=== PATIENT | female | born 1960 | race Caucasian/White ===

== ENCOUNTER 2016-07-01 20:55 | Inpatient (IN) | payer BC, OTHER ==
[~2016-07-01] VITALS: Ht 157.5 cm; Wt 82.6 kg
[2016-07-02 00:40] VITALS: BP 126/82
--- NOTE | 2016-07-02 00:40 | NUR ---
ADMISSION NOTE VS: T 97.9; BP 126/81; RR 18; RA 02 SAT 99%; HR 82; PAIN LEVEL: 0 BY 0-10 PAIN SCALE. Height: 5'2; Weight: 182 lb Patient is a 56 y/o female admitted to [facility] on 07/02/2016 at 00:40 under the care Elieser Azevedo MD for Benzo, Alcohol, Opioid dependence. NKA, NKDA, NKFA, Full Code. Fall and Seizures Precautions. Patient denies History of Seizures. Patient denies Suicidal and homicidal ideations. Patient denies past hospitalizations in the last 30 days. Patient reports last hospitalization in the 2015 for Carpal Tunnel Surgery. Urine specimen was collected for drug and screen. Patient reports LMP on 06/09/2016. Patient reports PMH: Anxiety, Depression, Right and Left Hips Rotation Surgeries; Right and Left Hands Carpal Tunnel Surgeries; Gastric Bypass Surgery; Gallbladder Removal Surgery, Heavy Tobacco Smoker, Substance Abuse. Patient denies Family History of Substance abuse. Patient reports that she has PCP. She got Flu vaccination in January,. Patient requested PNA vaccination. Patient reports Substance abuse History: 1. Alcohol/Vodka PO: 1pint daily since 2010. Last dosage' s 1 pint of Vodka on 07/01/2016 at 1800. 2 . Xanax PO since April,, 2 mg daily. Last dosage' s of 2 mg's on 07/01/2016 at 22:00. 3. Valium PO during last month 5 mg daily. Last dosage' s of 5 mg's on 07/01/2016 at 22:00. 4. Oxycodone PO: 2 years 3-5 mg daily. Last dosage' s of 5 mg's on 07/01/2016 at 22:00. 5. Tobacco since 1999: 10 cigarettes daily. Patient brought home medications: reconciliation done. Upon initial assessment patient is alert and oriented x4. COWS 7; CIWA 8. Patient c/o mild anxiety, flashes, nervousness, sweating, tremors of the hands. Patient denies N/V, and diarrhea. VS WNL: Patient has no S/S of distress now. Breathing is unlabored and even. Lungs Sounds are clear thoroughly bilaterally. Bowel Sounds are active in all four quadrants. Stomach is soft, non-tender. Skin is intact, warm and moist in tough. Encourage increased fluids intake. Educations was provided for Safety, Infections Control, Medications: Hand Out printed and given to patient . Patient was oriented to unit and on her room. Doctor Elieser Lira MD aware for patient condition. Waiting for orders. All needs met. Safety measures on the place by hospital policy: Call light within reach, Bed in the lowest position and locked; Padded bed rails up x2. Will continue to monitor.
[2016-07-02] MEDS ORDERED: ACETAMINOPHEN 325 MG TABLET PO PRN (01:15)
[2016-07-02] MEDS ORDERED: ONDANSETRON ODT 4 MG TAB.RAPDIS SL PRN (01:15)
[2016-07-02] MEDS ORDERED: THIAMINE HCL 200 MG/2 ML VIAL IM ONE (01:15)
[2016-07-02] MEDS ORDERED: DICYCLOMINE HCL 20 MG TABLET PO PRN (01:15)
[2016-07-02] MEDS ORDERED: LORAZEPAM 1 MG TABLET PO PRN ×2 (01:15)
[2016-07-02] MEDS ORDERED: HYDROXYZINE PAMOATE 25 MG CAPSULE PO PRN (01:15)
[2016-07-02] MEDS ORDERED: LORAZEPAM 2 MG/1 ML VIAL IM PRN (01:15)
[2016-07-02] MEDS ORDERED: MAG HYDROX/AL HYDROX/SIMETH 30 ML LIQUID UDC PO PRN (01:15)
[2016-07-02] MEDS ORDERED: MAGNESIUM HYDROXIDE 30 ML LIQUID UDC PO PRN (01:15)
[2016-07-02] MEDS ORDERED: CLONIDINE HCL 0.1 MG TABLET PO PRN (01:15)
[2016-07-02] MEDS ORDERED: LOPERAMIDE HCL 2 MG CAPSULE PO PRN ×2 (01:15)
[2016-07-02] MEDS ORDERED: BUPRENORPHINE HCL 2 MG TAB.SUBL SL PRN ×2 (01:30→15:00)
[2016-07-02] MEDS ORDERED: METHOCARBAMOL 750 MG TABLET PO PRN (01:30)
[2016-07-02 01:39] LABS: *AMPHETAMINE, URINE NEGATIVE (NEGATIVE); *BARBITURATE, URINE NEGATIVE (NEGATIVE); *CANNABINOID, URINE NEGATIVE (NEGATIVE); *COCCAINE, URINE NEGATIVE (NEGATIVE); *OPIATE, URINE POSITIVE (NEGATIVE); *PHENCYCLIDINE SCREEN,URINE NEGATIVE (NEGATIVE)
[2016-07-02 01:40] LABS: *URINE HCG, QUAL NEGATIVE (NEGATIVE)
[2016-07-02 01:56] LABS: BASOPHILS % (AUTO) 0.8 % (0.0-2.0); EOSINOPHILS # (AUTO) 0.1 K/uL (0.0-0.7); EOSINOPHILS % (AUTO) 1.3 % (0.0-7.0); HEMATOCRIT 37.8 % (37.0-47.0); HEMOGLOBIN 13.1 g/dL (12.0-16.0); LYMPHOCYTES # (AUTO) 1.4 K/uL (0.8-4.8); LYMPHOCYTES % (AUTO) 29.6 % (20.5-51.5); MEAN CORPUSCULAR HEMOGLOBIN 32.6 uug (27.0-31.0); MEAN CORPUSCULAR HGB CONC 35 g/dL (32.0-37.0); MEAN CORPUSCULAR VOLUME 94.5 fL (81.0-99.0); MONOCYTES # (AUTO) 0.4 K/uL (0.1-1.30); MONOCYTES % (AUTO) 8.6 % (0.0-11.0); NEUTROPHILS # (AUTO) 2.8 K/uL (1.8-8.9); NEUTROPHILS % (AUTO) 59.7 % (38.5-71.5); PLATELET COUNT (AUTO) 181 K/uL (150-450); RED CELL DISTRIBUTION WIDTH 12.3 % (11.5-14.5); WHITE BLOOD COUNT (AUTO) 4.7 K/uL (4.0-11.2)
[2016-07-02] MEDS ORDERED: ESCI10TA55 PO (01:57)
[2016-07-02] MEDS ORDERED: OMEP40CA37 PO (01:57)
[2016-07-02 02:02] LABS: ALBUMIN 4.1 g/dL (3.4-5.0); BILIRUBIN,TOTAL 0.4 mg/dL (0.2-1.0); CALCIUM 8.7 mg/dL (8.5-10.1); POTASSIUM 4.2 mmol/L (3.5-5.1); TOTAL PROTEIN, SERUM 7.8 g/dL (6.4-8.2)
[2016-07-02 02:13] LABS: THYROID STIMULATING HORMONE 2.573 mIU/mL (0.358-3.740)
[2016-07-02 02:21] LABS: HIV-1 p24 ANTIGEN NON REACTIVE (NONREACTIVE); HIV-1/2 ANTIBODY NON REACTIVE (NONREACTIVE)
[2016-07-02 04:00] VITALS: BP 124/76
--- NOTE | 2016-07-02 06:58 | NUR ---
END OF SHIFT Patient is a 56 y/o female admitted to [facility] on 07/02/2016 at 00:40 under the care Elieser Azevedo MD for Benzo, Alcohol, Opioid dependence. NKA, NKDA, NKFA, Full Code. Fall and Seizures Precautions. Patient denies History of Seizures. Patient denies Suicidal and homicidal ideations. Patient denies past hospitalizations in the last 30 days. Patient reports last hospitalization in the 2015 for Carpal Tunnel Surgery. Urine specimen was collected for drug and screen. Patient reports LMP on 06/09/2016. Patient reports PMH: Anxiety, Depression, Right and Left Hips Rotation Surgeries; Right and Left Hands Carpal Tunnel Surgeries; Gastric Bypass Surgery; Gallbladder Removal Surgery, Heavy Tobacco Smoker, Substance Abuse. Patient denies Family History of Substance abuse. Patient reports that she has PCP. She got Flu vaccination in January,. Patient requested PNA vaccination. Patient reports Substance abuse History: 1. Alcohol/Vodka PO: 1pint daily since 2010. Last dosage' s 1 pint of Vodka on 07/01/2016 at 1800. 2 . Xanax PO since April,, 2 mg daily. Last dosage' s of 2 mg's on 07/01/2016 at 22:00. 3. Valium PO during last month 5 mg daily. Last dosage' s of 5 mg's on 07/01/2016 at 22:00. 4. Oxycodone PO: 2 years 3-5 mg daily. Last dosage' s of 5 mg's on 07/01/2016 at 22:00. 5. Tobacco since 1999: 10 cigarettes daily. Patient brought home medications: reconciliation done. Upon last assessment patient is alert and oriented x4. COWS decreased from 8 to 6; CIWA decreased from 7 to 5 . Patient denies flashes, nervousness, sweating, and bones and muscles cramps. Patient has tremors of the hands. Patient denies N/V, and diarrhea. VS WNL: Patient has no S/S of distress now. Breathing is unlabored and even. Lungs Sounds are clear thoroughly bilaterally. Bowel Sounds are active in all four quadrants. Stomach is soft, non-tender. Patient reports last BM on 07/01/2016 in the morning. Skin remains intact, warm and dry in tough. Encouraged increased fluids intake. Doctor Elieser Lira MD aware for patient condition. Patient slept 3 hours. Intake: 1570 ml. Voided x3. All needs met. Safety measures on the place by hospital policy: Call light within reach, Bed in the lowest position and locked; Padded Bedrails up x2. Patient was endorsed to day shift nurse in stable condition. SBAR report given.
--- NOTE | 2016-07-02 07:41 | NUR ---
Start of shift note; Received report from night nurse. Patient is a 56 year old female admitted on 07/01/16. Patient is admitted for ETOH and Opioid dependence. Patient reported drinking ETOH (vodka) 1 pint for 6 years last consumed at 1800. Patient also reported using Xanax 2mg daily x2 in one month last used 07/01/16, Valium 5mg /daily x2 in one month last used 07/01/16 and Oxycodone 3-5 mg daily for 2 years last used 07/01/16 . NKA, full code status on fall seizure precautions. Patient reported past medical history of hip surgery in 2008, hand surgery in 2015, gastric bypass in 2008, anxiety disorder and depression disorder. Patient to be evaluated today for taper orders. Patient's last COWS score is 6 and last CIWA score is 5. Patient slept for 4 hours. All safety measures secured. Will closely monitor patient.
[2016-07-02 08:00] VITALS: BP 110/66
[2016-07-02] MEDS ORDERED: TUBERCULIN,PURIF.PROT.DERIV. 5 TU/0.1 ML TEST ID ONE (09:00)
[2016-07-02] MEDS: THIAMINE HCL 100 MG TABLET PO SCH (09:21)
[2016-07-02] MEDS: MULTIVITAMINS,THERAPEUTIC TABLET PO SCH (09:21)
[2016-07-02] MEDS: FOLIC ACID 1 MG TABLET PO SCH (09:21)
--- NOTE | 2016-07-02 09:55 | NUR ---
MD communication Notified Dr Lira of VTE score >5, stated he will place orders.
[2016-07-02] MEDS: ESCITALOPRAM OXALATE 10 MG TABLET PO SCH (10:36)
[2016-07-02 12:00] VITALS: BP 107/65
--- NOTE | 2016-07-02 13:00 | NUR ---
MD communication; MD ordered Lovenox for chemical VTE prophylaxis and VTE pump at bedside for VTE score of 5. Educated patient on how to use VTE pumps and the importance of compliance to treatment plan to prevent complications. Will continue to monitor patient.
[2016-07-02] MEDS: LORAZEPAM 1 MG TABLET PO SCH ×3 (13:25→21:02)
[2016-07-02 16:00] VITALS: BP 117/72
--- NOTE | 2016-07-02 17:00 | NUR ---
Medication held; Due Ativan held due to patient appears too sedated, vital signs remained within normal limits. Safety measures secured. MD notified. Will continue to monitor patient.
--- NOTE | 2016-07-02 18:15 | NUR ---
End of shift note; Patient is AOX4. Patient is a 56 year old female admitted on 07/01/16. Patient is admitted for ETOH and Opioid dependence. Patient reported drinking ETOH (vodka) 1 pint for 6 years last consumed at 1800. Patient also reported using Xanax 2mg daily x2 in one month last used 07/01/16, Valium 5mg /daily x2 in one month last used 07/01/16 and Oxycodone 3-5 mg daily for 2 years last used 07/01/16 . NKA, full code status on fall seizure precautions. Patient reported past medical history of hip surgery in 2008, hand surgery in 2015, gastric bypass in 2008, anxiety disorder and depression disorder. Patient was placed on modified Ativan taper today. Patient's last COWS score is 4 and last CIWA score is 3. All safety measures secured. Met all needs.
--- NOTE | 2016-07-02 18:45 | NUR ---
START OF SHIFT Patient endorsed by outgoing shift nurse. SBAR report received. Patient was admitted to [facility] on 07/02/2016at for Benzo/Alcohol/Opioid dependence, placed on 5 day Ativan taper. NKA, Regular Diet; Full Code, Fall and Seizures Precautions. Patient denies History of Seizure. Past Medical History: Anxiety Disorder; Depression Disorder; Substance Abuse ; Left and Right Hips Rotation Surgery; Right and Left Carpal Tunnel Surgery; Gallbladders Removal; Gastric Bypass Surgery. Patient also reports that she is mother of four children and grand mother of four grandchildren. Patient reports Substance abuse history: Alcohol/Vodka 500 ml(1 pint) since 2010 daily, Xanax 2 mg PO daily since May,, Valium of 6 mg daily PO during last month, and Oxycodone PO 3-5 mg daily since 2014. Upon assessment, Patient has mild anxiety, tremors that felt. Patient denies any pain now: she reports that pain level is 0 by o-10 pain scale. Patient denies Hallucinations. Patient denies SI/HI. VS WNL: T: 98'4; RR:16; HR: 75; RA O2 SAT: 95%. Breathing is unlabored and even bilaterally; Lungs are clear thoroughly. Patient denies SOB/chest pain. BS is active in all 4 quadrants. Abdomen is soft and non-tender. Patient reported that last BM was 07/01/2016 in the morning. Patient has no s/s of distress now. All needs met Safety measures in the place by hospital policy: Call light within reach; Bed is locked and in the lowest position; padded side rails up x2. Will continue to monitor.
[2016-07-02 20:36] VITALS: BP 111/67
[2016-07-02] MEDS: ENOXAPARIN SODIUM 40 MG/0.4 ML DISP.SYRIN SQ SCH (21:00)
[2016-07-03] VITALS: BP 107/67
[2016-07-03 04:00] VITALS: BP 105/68
--- NOTE | 2016-07-03 06:47 | NUR ---
END OF SHIFT Patient is a 56 years old female admitted to [facility] on 07/02/2016at for Benzo/Alcohol/Opioid withdrawal under medical supervision, placed on 5 day Ativan taper. NKA, Regular Diet; Full Code, Fall and Seizures Precautions. Patient denies History of Seizure. Past Medical History: Anxiety Disorder; Depression Disorder; Substance Abuse ; Left and Right Hips Rotation Surgery; Right and Left Carpal Tunnel Surgery; Cholecystectomy (Gallbladder removal); Gastric Bypass Surgery. Substance abuse history: Alcohol/Vodka PO 500 ml(1 pint) since 2010 daily, Xanax 2 mg PO daily since May,; Valium PO of 6 mg daily PO due one month, and Oxycodone PO 3-5 mg daily since 2014. VS WNL: T: 98'6; BP: 105/68; RR:14; HR: 60; RA O2 SAT: 96%. Pain level is 0 by o-10 pain scale. Lovenox (Enoxaparin Sodium) SQ once daily ordered for VTE Prevention. SCD Pumps on when patient in the bed. No PRN medications administrated last night. Patient slept 6 hours 15 minutes; Intake 1,550 ml; Voided x2; Stool x1. All needs met. Safety measures in the place by hospital policy: Call light within reach; Bed is locked and in the lowest position; padded side rails up x2. Patient endorsed to day shift nurse in stable condition. SBAR report given.
--- NOTE | 2016-07-03 07:45 | NUR ---
START OF SHIFT: RECEIVED PT A/O X 4 SITTING UP IN BED EATING BREAKFAST. SHE STATES SHE FEELS SOME MILD ANXIETY AND STATES THE ATIVAN IS EFFECTIVE IN REDUCING S/S OF W/D. ATIVAN TAPER IN PROGRESS. CIWA 1 COWS 1. PT STATES SHE WILL ATTEND GROUPS TODAY. ENCOURAGED INCREASED FLUIDS TO ASSIST IN FACILITATING DETOX PROCESS. WILL CONTINUE TO MONITOR AND MANAGE S/S OF W/D.
[2016-07-03 08:00] VITALS: BP 100/67
[2016-07-03] MEDS: ESCITALOPRAM OXALATE 10 MG TABLET PO SCH (08:45)
[2016-07-03] MEDS: THIAMINE HCL 100 MG TABLET PO SCH (08:45)
[2016-07-03] MEDS: FOLIC ACID 1 MG TABLET PO SCH (08:45)
[2016-07-03] MEDS: LORAZEPAM 1 MG TABLET PO SCH ×4 (08:45→21:27)
[2016-07-03] MEDS: MULTIVITAMINS,THERAPEUTIC TABLET PO SCH (08:45)
[2016-07-03] MEDS: IBUPROFEN 400 MG TABLET PO PRN (08:49)
[2016-07-03 12:00] VITALS: BP 100/75
[2016-07-03] MEDS ORDERED: PNEUMOCOCCAL 23-VAL P-SAC VAC 0.5 ML VIAL IM ONE (13:00)
[2016-07-03 15:09] LABS: HEPATITIS B CORE AB, IgM Negative (Negative); HEPATITIS B SURFACE AG Negative (Negative)
[2016-07-03 16:00] VITALS: BP 117/71
--- NOTE | 2016-07-03 19:12 | NUR ---
END OF SHIFT: PT ATTENDED GROUPS AND INTERACTED WITH PEERS TODAY. SHE CONTINUES ON ATIVAN TAPER. LAST CIWA1 COWS 2. SHE DID NOT REQUIRE PRNS AND STATES THE DETOX MEDS ARE EFFECTIVE. WILL PASS SHIFT REPORT TO ONCOMING NIGHT NURSE.
--- NOTE | 2016-07-03 19:15 | NUR ---
Start of shift note Received report from day shift nurse. Pt is a 56 yo female, A+Ox4, presenting to [facility] for ETOH/Benzo/Opiate dependence. Pt has NKA, is Full Code status, and on Regular Diet. Pt is on Fall and Seizure precautions. Pt has Hx of Right and Left Hip SX, Right and Left Carpal Tunnel SX, Gallbladder removal, Gastric Bypass, Anxiety and Depression. Pt is on 5 day Ativan taper, tolerated well. No s/s of distress noted at this time. Respirations even and unlabored. Will continue to monitor.
[2016-07-03 20:30] VITALS: BP 118/66
[2016-07-03] MEDS: ENOXAPARIN SODIUM 40 MG/0.4 ML DISP.SYRIN SQ SCH (21:28)
--- NOTE | 2016-07-04 00:05 | NUR ---
V/S, COWS, and CIWA Refused V/S, COWS, and CIWA Refused. no s/s of distress noted at this time. Respirations even and unlabored. Will continue to monitor.
--- NOTE | 2016-07-04 04:08 | NUR ---
V/S, COWS, and CIWA Refused V/S, COWS, and CIWA Refused. no s/s of distress noted at this time. Respirations even and unlabored. Will continue to monitor.
--- NOTE | 2016-07-04 07:02 | NUR ---
End of shift note Pt is a 56 yo female, A+Ox4, presenting to [facility] for ETOH/Benzo/Opiate dependence. Pt has NKA, is Full Code status, and on Regular Diet. Pt is on Fall and Seizure precautions. Pt has Hx of Right and Left Hip SX, Right and Left Carpal Tunnel SX, Gallbladder removal, Gastric Bypass, Anxiety and Depression. Pt is on 5 day Ativan taper, tolerated well. Pt slept for a total of 8 HRS. Last COWS: 1 and Last CIWA: 2 @1999. No s/s of distress noted at this time. Respirations even and unlabored. Will endorse to day shift nurse.
--- NOTE | 2016-07-04 07:47 | NUR ---
START OF SHIFT: RECEIVED PT A/O X 4 . SHE STATES SHE REPORTS MILD ANXIETY AND STATES THE ATIVAN IS EFFECTIVE IN REDUCING S/S OF W/D. ATIVAN TAPER IN PROGRESS. CIWA 1 . PT STATES SHE IS ATTENDING GROUPS . SHE STATES SHE SLEPT WELL LAST NIGHT. ENCOURAGED INCREASED FLUIDS TO ASSIST IN FACILITATING DETOX PROCESS. WILL CONTINUE TO MONITOR AND PROVIDE SAFE AND SUPPORTIVE ENVIRONMENT.
[2016-07-04 08:00] VITALS: BP 103/61
[2016-07-04 08:37] LABS: ALBUMIN 3.5 g/dL (3.4-5.0); BILIRUBIN,DIRECT 0.1 mg/dL (0.0-0.2); BILIRUBIN,TOTAL 0.3 mg/dL (0.2-1.0); CALCIUM 8.9 mg/dL (8.5-10.1); CREATININE 0.7 mg/dL (0.6-1.3); MAGNESIUM 2.1 mg/dL (1.8-2.4); POTASSIUM 4.4 mmol/L (3.5-5.1); TOTAL PROTEIN, SERUM 6.7 g/dL (6.4-8.2)
[2016-07-04] MEDS: LORAZEPAM 1 MG TABLET PO SCH ×3 (08:45→21:12)
[2016-07-04] MEDS: MULTIVITAMINS,THERAPEUTIC TABLET PO SCH (08:45)
[2016-07-04] MEDS: FOLIC ACID 1 MG TABLET PO SCH (08:45)
[2016-07-04] MEDS: ESCITALOPRAM OXALATE 10 MG TABLET PO SCH (08:45)
[2016-07-04] MEDS: THIAMINE HCL 100 MG TABLET PO SCH (08:45)
[2016-07-04 12:00] VITALS: BP 119/75
[2016-07-04 16:00] VITALS: BP 114/82
--- NOTE | 2016-07-04 19:15 | NUR ---
END OF SHIFT: PT CONTINUES ON ATIVAN TAPER.SHE REPORTED MILD ANXIETY AND STATES DETOX MEDS ARE EFFECTIVE SHE ATTENDED GROUPS. LAST CIWA 1 SHE DID NOT REQUIRE PRNS. WILL PASS SHIFT REPORT TO ONCOMING NIGHT NURSE.
--- NOTE | 2016-07-04 19:16 | NUR ---
Start of shift note Received report from day shift nurse. Pt is a 56 yo female, A+Ox4, presenting to [facility] for ETOH/Benzo/Opiate dependence. Pt has NKA, is Full Code status, and on Regular Diet. Pt is on Fall and Seizure precautions. Pt has HX of Right and Left Hip SX, Right and Left Carpal Tunnel SX, Gallbladder removal, Gastric Bypass, Anxiety and Depression. Pt is on 5 day Ativan taper, tolerated well. No s/s of distress noted at this time. Respirations even and unlabored. Will continue to monitor.
[2016-07-04 20:30] VITALS: BP 118/76
[2016-07-04] MEDS: diphenhydrAMINE 50 MG CAPSULE PO PRN (21:12)
[2016-07-04] MEDS: ENOXAPARIN SODIUM 40 MG/0.4 ML DISP.SYRIN SQ SCH (21:14)
--- NOTE | 2016-07-05 00:22 | NUR ---
V/S, COWS, and CIWA Refused V/S, COWS, and CIWA Refused. no s/s of distress noted at this time. Respirations even and unlabored. Will continue to monitor.
--- NOTE | 2016-07-05 04:18 | NUR ---
V/S, COWS, and CIWA Refused V/S, COWS, and CIWA Refused. no s/s of distress noted at this time. Respirations even and unlabored. Will continue to monitor.
--- NOTE | 2016-07-05 07:04 | NUR ---
End of shift note Pt is a 56 yo female, A+Ox4, presenting to [facility] for ETOH/Benzo/Opiate dependence. Pt has NKA, is Full Code status, and on Regular Diet. Pt is on Fall and Seizure precautions. Pt has Hx of Right and Left Hip SX, Right and Left Carpal Tunnel SX, Gallbladder removal, Gastric Bypass, Anxiety and Depression. Pt is on 5 day Ativan taper, tolerated well. Pt slept for a total of 8 HRS. Last COWS: 3 and Last CIWA: 2 @1999. No s/s of distress noted at this time. Respirations even and unlabored. Will endorse to day shift nurse.
[2016-07-05 08:00] VITALS: BP 93/61
--- NOTE | 2016-07-05 08:04 | NUR ---
Start of shift note SBAR report rcv'd. pt was admitted for ETOH dependence.Pt has a PMH of multipls surgeries, anxiety and depression. Pt is on the last day of her 5 day ativan taper and tolerating well without any ASE. Pt is currently resting in her bed, pt states that all of her needs are addressed. Will continue to monitor pt.
[2016-07-05] MEDS: MULTIVITAMINS,THERAPEUTIC TABLET PO SCH (08:50)
[2016-07-05] MEDS: FOLIC ACID 1 MG TABLET PO SCH (08:50)
[2016-07-05] MEDS: LORAZEPAM 1 MG TABLET PO SCH ×2 (08:51→22:43)
[2016-07-05] MEDS: ESCITALOPRAM OXALATE 10 MG TABLET PO SCH (08:51)
[2016-07-05] MEDS: THIAMINE HCL 100 MG TABLET PO SCH (08:51)
--- NOTE | 2016-07-05 12:00 | NUR ---
Refusal of vital signs Pt refused VS. COWS and CIWA deferred. Pt states that she is comfortable and free from s/s of withdrawal. Will continue to monitor pt.
[2016-07-05 16:00] VITALS: BP 90/54
--- NOTE | 2016-07-05 19:28 | NUR ---
End of shift note pt was admitted for ETOH dependence.Pt has a PMH of multiple surgeries, anxiety and depression. Pt is on the last day of her 5 day ativan taper and tolerating well without any ASE. Pt was very active and participated in all groups and activities during the shift today. Pt is very active in the program and doing very well. pt denies any pain or discomfort. All needs addressed at this time. SBAR report endorsed to oncoming shift.
--- NOTE | 2016-07-05 19:29 | NUR ---
Start of shift note Received report from day shift nurse. Pt is a 56 yo female, A+Ox4, presenting to [facility] for ETOH/Benzo/Opiate dependence. Pt has NKA, is Full Code status, and on Regular Diet. Pt is on Fall and Seizure precautions. Pt has HX of Right and Left Hip SX, Right and Left Carpal Tunnel SX, Gallbladder removal, Gastric Bypass, Anxiety and Depression. Pt is on 5 day Ativan taper, tolerated well. No s/s of distress noted at this time. Respirations even and unlabored. Will continue to monitor.
[2016-07-05 20:11] VITALS: BP 119/85
[2016-07-05] MEDS: ENOXAPARIN SODIUM 40 MG/0.4 ML DISP.SYRIN SQ SCH (22:44)
--- NOTE | 2016-07-06 00:07 | NUR ---
V/S, COWS, and CIWA Refused V/S, COWS, and CIWA Refused. no s/s of distress noted at this time. Respirations even and unlabored. Will continue to monitor.
--- NOTE | 2016-07-06 04:08 | NUR ---
V/S, COWS, and CIWA Refused V/S, COWS, and CIWA Refused. no s/s of distress noted at this time. Respirations even and unlabored. Will continue to monitor.
--- NOTE | 2016-07-06 06:53 | NUR ---
End of shift note Pt is a 56 yo female, A+Ox4, presenting to [facility] for ETOH/Benzo/Opiate dependence. Pt has NKA, is Full Code status, and on Regular Diet. Pt is on Fall and Seizure precautions. Pt has Hx of Right and Left Hip SX, Right and Left Carpal Tunnel SX, Gallbladder removal, Gastric Bypass, Anxiety and Depression. Pt is on 5 day Ativan taper, tolerated well. Pt slept for a total of 6 HRS. Last COWS: 1 and Last CIWA: 0 @1999. No s/s of distress noted at this time. Respirations even and unlabored. Will endorse to day shift nurse.
--- NOTE | 2016-07-06 07:24 | NUR ---
Start of shift note; Received report from night nurse. Patient is a 56 year old female admitted on 07/01/16. Patient is admitted for ETOH and Opioid dependence. Patient reported drinking ETOH (vodka) 1 pint for 6 years last consumed at 1800. Patient also reported using Xanax 2mg daily x2 in one month last used 07/01/16, Valium 5mg /daily x2 in one month last used 07/01/16 and Oxycodone 3-5 mg daily for 2 years last used 07/01/16 . NKA, full code status on fall seizure precautions. Patient reported past medical history of hip surgery in 2008, hand surgery in 2015, gastric bypass in 2008, anxiety disorder and depression disorder. Patient was placed on Ativan taper, no adverse reactions noted. Patient's last COWS score is 2 and last CIWA score is 1. Patient slept for 7 hours. All safety measures secured. Will closely monitor patient.
[2016-07-06 08:00] VITALS: BP 100/58
[2016-07-06] MEDS: MULTIVITAMINS,THERAPEUTIC TABLET PO SCH (08:37)
[2016-07-06] MEDS: ESCITALOPRAM OXALATE 10 MG TABLET PO SCH (08:37)
[2016-07-06] MEDS: FOLIC ACID 1 MG TABLET PO SCH (08:37)
[2016-07-06] MEDS: THIAMINE HCL 100 MG TABLET PO SCH (08:37)
[2016-07-06 12:00] VITALS: BP 119/68
--- NOTE | 2016-07-06 14:30 | NUR ---
Re-assessment; PRN medication is effective, patient denies pain at this time. Addendum: 07/06/16 at 1815 by SHAYAN GREGG LVN re-assessed patient at 1630
[2016-07-06] MEDS: IBUPROFEN 400 MG TABLET PO PRN (15:03)
--- NOTE | 2016-07-06 15:04 | NUR ---
PRN medication; Patient is complaining of back pain rated 7/10, Ibuprofen 400mg PO given. Will continue to monitor patient.
[2016-07-06 16:00] VITALS: BP 119/75
--- NOTE | 2016-07-06 18:15 | NUR ---
End of shift note; Patient is AOX4. Patient is 27 y/o male admitted on 07/02/16 for Opiate/benzo dependence. Abdomen soft and non-distended. No complains of N/V/D or constipation noted. (+) BS in all 4 quadrants. Ambulatory ad harpreet with steady gait. Patient was placed on a 5-day Subutex taper as ordered. No adverse reactions noted. Noted to be Allergic to Sulfa. FULL CODE status. Regular diet. On fall and seizure precautions. Educated patient on his current plan of care and his medication regimen. Encouraged oral fluid intake and encouraged group participation to learn new skills to prevent relapse. Patient's last COWS score is 4. All safety measures secured. Met all needs. Addendum: 07/06/16 at 1819 by SHAYAN GREGG LVN Disregard notes above, wrong patient charting.
--- NOTE | 2016-07-06 18:20 | NUR ---
End of shift note for 304; Patient is AOX4. Patient is a 56 year old female admitted on 07/01/16. Patient is admitted for ETOH and Opioid dependence. Patient reported drinking ETOH (vodka) 1 pint for 6 years last consumed at 1800. Patient also reported using Xanax 2mg daily x2 in one month last used 07/01/16, Valium 5mg /daily x2 in one month last used 07/01/16 and Oxycodone 3-5 mg daily for 2 years last used 07/01/16 . NKA, full code status on fall seizure precautions. Patient reported past medical history of hip surgery in 2008, hand surgery in 2015, gastric bypass in 2008, anxiety disorder and depression disorder. Patient completed Ativan taper, no adverse reactions noted. Patient's last COWS score is 1 and last CIWA score is 0. All safety measures secured. Met all needs.
[2016-07-06 20:00] VITALS: BP 126/78
--- NOTE | 2016-07-06 20:00 | NUR ---
1999 Patient received awake, alert and sitting up in her bed reading with television on. Upon seeing nurse enter her room # 304, Patient smiles and states, " Hi, how are you? Patient's color is pink and her skin is warm, dry and intact. Patient's lung sounds are clear bilaterally and active bowel sounds are noted X 4 abdominal Quads, per auscultation. Patient is oriented to person, place, day, date, time and her personal situation. Patient denies any pain or other discomforts at this time. Patient states that she is doing " fine" and she continues to be compliant with [facility] group attendance, her medication regimen and all that is asked of her, here on [facility] floor. Venous leg pump with bilateral leg sleeves in place on patient's bed, but not on patient's legs. Patient states that she is walking and does not need to wear leg pump sleeves at this time. Circulation and sensation to bilateral legs/feet are WNL. All toes are warm and pink with brisk blanching noted. Vital signs are: 98.8-76-16 126/78, O2 Sat 98%, CIWA 1, COWS 2 Fall/Seizure precautions in place. Patient moves all her extremities fully WNL. Patient offers no requests or c/o anything at this time. Bed is locked and in lowest position, bed rails are up X 2 and call light within patient's easy reach.
[2016-07-06] MEDS: ENOXAPARIN SODIUM 40 MG/0.4 ML DISP.SYRIN SQ SCH (21:28)
[2016-07-07] VITALS: BP 121/81
[2016-07-07] MEDS: diphenhydrAMINE 50 MG CAPSULE PO PRN ×2 (00:17→23:17)
--- NOTE | 2016-07-07 00:17 | NUR ---
PRN MEDICATION: Prn Benadryl 50 mg p.o. given per patient's request for sleep medication.
--- NOTE | 2016-07-07 01:17 | NUR ---
REASSESSMENT PRN MEDICATION: Patient is resting quietly with eyes closed and respirations quiet, even, unlabored at 16
--- NOTE | 2016-07-07 04:00 | NUR ---
Patient refused V/S, COWS, CIWA to be done at this time.
--- NOTE | 2016-07-07 06:30 | NUR ---
0630 Patient slept a total of 5 hours and she had 2 voids and no stools in bathroom. Total intake was 1,133 ml p.o. Prn medication given noted separately per floor protocol. V/SS afebrile, CIWA 1, COWS 2. Patient was admitted on 07/01/16 for; Alcohol, xanax, valium and oxycodone withdrawal and 5-Day Ativan medication taper has been completed. Patient is presently resting comfortably with eyes closed and respirations unlabored at 16.
--- NOTE | 2016-07-07 07:14 | NUR ---
Start of shift note; Received report from night nurse. Patient is a 56 year old female admitted on 07/01/16. Patient is admitted for ETOH and Opioid dependence. Patient reported drinking ETOH (vodka) 1 pint for 6 years last consumed at 1800. Patient also reported using Xanax 2mg daily x2 in one month last used 07/01/16, Valium 5mg /daily x2 in one month last used 07/01/16 and Oxycodone 3-5 mg daily for 2 years last used 07/01/16 . NKA, full code status on fall seizure precautions. Patient reported past medical history of hip surgery in 2008, hand surgery in 2015, gastric bypass in 2008, anxiety disorder and depression disorder. Patient was placed on Ativan taper, no adverse reactions noted. Patient's last COWS score is 2 and last CIWA score is 1. Patient slept for 5 hours. All safety measures secured. Will closely monitor patient.
[2016-07-07 08:00] VITALS: BP 95/58
[2016-07-07] MEDS: FOLIC ACID 1 MG TABLET PO SCH (08:44)
[2016-07-07] MEDS: MULTIVITAMINS,THERAPEUTIC TABLET PO SCH (08:44)
[2016-07-07] MEDS: THIAMINE HCL 100 MG TABLET PO SCH (08:44)
[2016-07-07] MEDS: ESCITALOPRAM OXALATE 10 MG TABLET PO SCH (08:44)
[2016-07-07 12:00] VITALS: BP 120/75
[2016-07-07] MEDS: IBUPROFEN 400 MG TABLET PO PRN (14:16)
[2016-07-07] MEDS ORDERED: PSEUDOEPHEDRINE HCL 30 MG TABLET PO PRN (15:15)
[2016-07-07] MEDS: LIDOCAINE 5% PATCH TD SCH (15:15)
[2016-07-07 16:00] VITALS: BP 105/62
[2016-07-07 16:11] LABS: *AMPHETAMINE, URINE NEGATIVE (NEGATIVE); *BARBITURATE, URINE NEGATIVE (NEGATIVE); *CANNABINOID, URINE NEGATIVE (NEGATIVE); *COCCAINE, URINE NEGATIVE (NEGATIVE); *OPIATE, URINE NEGATIVE (NEGATIVE); *PHENCYCLIDINE SCREEN,URINE NEGATIVE (NEGATIVE)
--- NOTE | 2016-07-07 18:19 | NUR ---
End of shift note; Patient is AOX4. Patient is a 56 year old female admitted on 07/01/16. Patient is admitted for ETOH and Opioid dependence. Patient reported drinking ETOH (vodka) 1 pint for 6 years last consumed at 1800. Patient also reported using Xanax 2mg daily x2 in one month last used 07/01/16, Valium 5mg /daily x2 in one month last used 07/01/16 and Oxycodone 3-5 mg daily for 2 years last used 07/01/16 . NKA, full code status on fall seizure precautions. Patient reported past medical history of hip surgery in 2008, hand surgery in 2015, gastric bypass in 2008, anxiety disorder and depression disorder. Patient completed Ativan taper, no adverse reactions noted. Patient's last COWS score is 1 and last CIWA score is 1. All safety measures secured. Met all needs.
[2016-07-07] MEDS ORDERED: LIDO30AD10 TD (18:59)
[2016-07-07] MEDS ORDERED: HYDR-3895 PO (18:59)
[2016-07-07] MEDS ORDERED: DIPH50CA37 PO (18:59)
[2016-07-07] MEDS ORDERED: Ibuprofen PO (18:59)
[2016-07-07] MEDS ORDERED: PSEU30TA PO (18:59)
[2016-07-07] MEDS ORDERED: Acetaminophen PO (18:59)
[2016-07-07 20:00] VITALS: BP 133/96
--- NOTE | 2016-07-07 20:00 | NUR ---
1999 Patient received awake, alert and just returning back to her room # 304 from [facility] in recreation room. Gait is steady. Upon seeing nurse enter her room, patient smiles and states, " Hi. Well I'm leaving tomorrow and even though I only had you two days, I'm going to miss you". Patient's color is pink and her skin is clean, warm, dry and intact. Patient is oriented to person, place, day, date, time and her personal situation. Vital signs are: 98.7-74-16 133/76 O2 Sat 99%, COWS 1, CIWA 1. Patient denies any pain or other discomforts and she states that she is looking forward to going to [facility] tomorrow. Patient ventilates her feelings about her drug detox treatment thus far, her discharge tomorrow and her possible future after she completes her stint in rehab, and she states that she is feeling 'very positive and optimistic about everything', and she continues to feel better and better each day. Patient further states that she continues to eat and take fluids ad harpreet with no gastric issues. Fall/Seizure precautions continue. Venous leg pump with bilateral leg sleeves in place on patient's bed, but not on patient's legs. Patient's overall mood/affect is euphoric presently. Bed is locked and in lowest position, bed rails are up X 2 and call light within patient's easy reach. Patient is in stable condition at this time.
[2016-07-07] MEDS: ENOXAPARIN SODIUM 40 MG/0.4 ML DISP.SYRIN SQ SCH (20:27)
--- NOTE | 2016-07-07 23:17 | NUR ---
PRN MEDICATION: Prn Benadryl 50 mg p.o. given per patient's request for sleep medication.
--- NOTE | 2016-07-08 | NUR ---
Patient refused V/S, COWS, CIWA to be done at the time.
--- NOTE | 2016-07-08 00:17 | NUR ---
REASSESSMENT PRN MEDICATION: Patient is resting comfortably with eyes closed and quiet, even, unlabored respirations noted at 14. Bed rails up X 2. Call light at patient's hand.
--- NOTE | 2016-07-08 04:00 | NUR ---
Patient refused V/S, COWS, CIWA to be done at this time.
--- NOTE | 2016-07-08 06:30 | NUR ---
0630 Patient had an uneventful night, sleeping a total of 6 hours. Total intake was 1,153 ml p.o. and patient had 3 voids and no stools. Prn medication given noted separately per floor protocol. V/SS afebrile, COWS 1, CIWA 1. Patient is presently resting comfortably with eyes closed and respirations even, unlabored at 16. Patient is in stable condition at this time.
[2016-07-08 07:06] LABS: *BENZODIAZEPINES Positive (.); *NORDIAZEPAM Negative (Cutoff=300); *OPIATES Negative ng/mL (Cutoff=300); *OXAZEPAM Positive (.)
--- NOTE | 2016-07-08 07:48 | NUR ---
BEGINNING OF SHIFT Patient endorsement report received from restaurant shift supervisor nurse, all pertinent information discussed. Patient is a 56 year old Female admitted on 07/01/2016 with admitting Dx: ETOH/Opiate/bzo/opiate dependence. Patient with past medical history of: right and left hips rotated surgery, right and left ahnd carpal tunner surgery, gallbladder removal, gastrci by pass surgery, anxiety and depression. Patient with substance use history of: vodka 1 pint daily for 6 years, Xanax Po 2 mg daily for one month, Valium 5 mg daily for one moneht, oxycodone 3-5mg daily for 2 years. Patient completed 5 day Ativan taper as ordered and is scheduled to be discharged today to [place]. As per restaurant shift supervisor patient slept for 6 hours, and received PRNs Benadryl as ordered, as per restaurant shift supervisor medication effective. Patients last ciwa score of: 1 and last cow score of: 1. Patient received in bed with eyes closed respirations are even and unlabored. Responsive to verbal stimuli, educated regarding plan of care for the day and medication regimen, safety measures in place, call light with in reach, will continue to monitor closely.
[2016-07-08 08:36] VITALS: BP 96/62
[2016-07-08] MEDS: FOLIC ACID 1 MG TABLET PO SCH (08:53)
[2016-07-08] MEDS: ESCITALOPRAM OXALATE 10 MG TABLET PO SCH (08:53)
[2016-07-08] MEDS: LIDOCAINE 5% PATCH TD SCH (08:53)
[2016-07-08] MEDS: MULTIVITAMINS,THERAPEUTIC TABLET PO SCH (08:53)
[2016-07-08] MEDS: THIAMINE HCL 100 MG TABLET PO SCH (08:53)
--- NOTE | 2016-07-08 09:45 | NUR ---
DISCHARGE Patient was discharged and off the unit at 0945, prior to discharge patient educated and provided with teaching regarding all discharge instructions, with good verbal understanding. patient noted self motivated towards sobriety patient discharged to [facility]. patients vital signs were stable, no s/sx of withdrawal noted, patient with last cow score of: 0 and last ciwa score of: 0. Prescriptions, home medications and instructions were placed in patients personal duffel bag.
== END 2016-07-08 09:45 | disposition other institution (70) | DRG 895 ==
LOC: SRC 23:39
PROVIDERS: ADMIT Internal Medicine; ATTEND Internal Medicine
PROC: HZ2ZZZZ Detoxification Services for Substance Abuse Treatment (ICD-10-PCS; principal; 2016-07-01)
PROC: HZ41ZZZ Group Counseling for Substance Abuse Treatment, Behavioral (ICD-10-PCS; 2016-07-03)
PROC: HZ31ZZZ Individual Counseling for Substance Abuse Treatment, Behavioral (ICD-10-PCS; 2016-07-05)
DX: F10.230 Alcohol dependence with withdrawal, uncomplicated (principal); F33.1 Major depressive disorder, recurrent, moderate; F11.20 Opioid dependence, uncomplicated; K70.10 Alcoholic hepatitis without ascites; K29.20 Alcoholic gastritis without bleeding; F13.10 Sedative, hypnotic or anxiolytic abuse, uncomplicated; Y90.6 Blood alcohol level of 120-199 mg/100 ml; Z90.49 Acquired absence of other specified parts of digestive tract; Z98.84 Bariatric surgery status; Z82.49 Family history of ischemic heart disease and other diseases of the circulatory system; Z82.0 Family history of epilepsy and other diseases of the nervous system; Z81.1 Family history of alcohol abuse and dependence; F17.210 Nicotine dependence, cigarettes, uncomplicated; F41.9 Anxiety disorder, unspecified; Z79.899 Other long term (current) drug therapy; G89.29 Other chronic pain; M54.5 Low back pain; R73.9 Hyperglycemia, unspecified
CPT/HCPCS: 36415; 70030-TC; 80307; 80346; 80361; 83690; 83735; 84443; 84703; 85025; 85610; 86580; 86705; 87340; 87806; 90732; A4663; G6040-TC; J1650; J3411; Q0163